=== PATIENT | female | born 1990 | race Caucasian/White ===

== ENCOUNTER 2025-04-05 07:52 | Emergency (ER) | payer SELFPAY ==
[2025-04-05] VITALS (12 sets, daily range): BP systolic 94–113; BP diastolic 49–74; PULSE 86–105; RESP 13–23; TEMP 36.6–37; O2SAT 95–100
--- NOTE | ~2025-04-05 | XR_ITS ---
Examination: XR chest 2V Clinical History: cough Comparison: None Technique: PA and Lateral Findings: Cardiomediastinal silhouette normal size and configuration. Lungs clear. No acute bony abnormality. IMPRESSION: 1. No acute cardiopulmonary findings. Reviewed, dictated and finalized at location R. [facility]AG[facility] OPERATOR
--- NOTE | 2025-04-05 08:11 | ECG_ITS ---
Test Date: 2025-04-05 08:15:20 Measurements Intervals [place] Rate: 105 P: 67 CA: 147 QRS: 43 QRSD: 82 T: 6 QT: 347 QTc: 459 Interpretive Statements SINUS TACHYCARDIA ABNORMAL RHYTHM ECG No previous ECG available for comparison Electronically Signed On 04-06-2025 09:11:11 ADULT NURSE PRACTITIONER by Gary Choi M.D.
[2025-04-05 09:06] LABS: Hematocrit 41.1 % (37.0-47.0); Hemoglobin 13.7 g/dL (12.0-15.0); Immature Granulocyte Percent A 0.2 % (0-0.5); Lymphocytes Absolute Auto 0.77 K/mm3 (0.9-3.2); Mean Corpuscular HGB Conc 33.3 g/dl (32-36); Mean Corpuscular Hemoglobin 29.3 pg (26-34); Mean Corpuscular Volume 88.0 fl (80-100); Nucleated Red Blood Cells Absolute Auto 0.000 K/mm3 (0.0-0.012); Nucleated Red Blood Cells Perc 0.0 % (0.0-0.2); Platelet Count Result 218 k/mm3 (150-375); Red Blood Count 4.67 M/mm3 (4.2-5.4); White Blood Count 5.5 K/mm3 (4.5-10.0)
[2025-04-05 09:23] LABS: Alanine Aminotransferase 18 U/L (6-35); Albumin Level 4.2 g/dL (3.5-5.1); Alkaline Phosphatase 100 U/L (38-126); Anion Gap 10 mmol/L (4-12); Aspartate Amino Transferase 26 U/L (14-36); Bilirubin,Total 2.2 mg/dL (0.2-1.3); Blood Urea Nitrogen 9 mg/dL (7-17); Calcium 8.8 mg/dL (8.4-10.2); Carbon Dioxide 23 mmol/L (22-30); Chloride 104 mmol/L (98-107); Estimated CRCL calculation 88 ml/min; Estimated Glomerular Filt Rate > 60; Glucose 83 mg/dL (65-110); Potassium 3.7 mmol/L (3.4-5.0); Sodium 137 mmol/L (137-145); Total Protein 8.0 g/dL (6.3-8.2)
[2025-04-05 09:29] LABS: NT Pro B Type Natriuretic Pept 42 pg/mL (19.9-100); Troponin I < 0.012 ng/mL (0.000-0.034)
[2025-04-05 09:42] LABS: Influenza A QL RT-PCR Negative (Negative); Influenza B QL RT-PCR Negative (Negative); RSV RNA, RT-PCR Negative (Negative); SARS-CoV-2 RNA PCR Positive (Negative)
--- NOTE | 2025-04-05 09:45 | PC.NURSE ---
pt had a knife upon arrival. ED security was called. knife was placed in a bag with a pt label on it in and locked in the safe. ED security and ED charge nurse aware
--- NOTE | 2025-04-05 10:44 | PC.NURSE ---
pt c/o loosing her phones. pt looked through all of her bags/belongings and could not find them. this RN called both the numbers, pt said she did not hear the vibration. this RN then called [facility] and asked them, they said the phones were left next to her black bag, the pt already looked through this bag and did not find it pt is now c/o loosing her bank card, this RN let pt know that we did not go through any of her belongings nor would we touch her bank card
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
--- NOTE | 2025-04-05 13:41 | PC.NURSE ---
after numerous calls to the pt cell phones, EMS realized they still had her phones and brought them back
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
--- NOTE | 2025-04-05 13:51 | PC.NURSE ---
pt says she has no one to pick her up. care coordination gave pt a list of phone numbers to try and find a ride
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
== END 2025-04-05 13:53 | disposition home or self-care (01) ==
PROVIDERS: Emergency Provider Emergency Medicine
DX: U07.1 COVID-19 (principal); T69.9XXA Effect of reduced temperature, unspecified, initial encounter; Z21 Asymptomatic human immunodeficiency virus [HIV] infection status; R00.0 Tachycardia, unspecified; X31.XXXA Exposure to excessive natural cold, initial encounter
CPT/HCPCS: 36415; 71046; 80053; 83880; 84484; 85025; 87637; 93005; 99284